=== PATIENT | male | born 1965 | race Caucasian/White ===

== ENCOUNTER 2018-06-12 13:57 | Emergency (ER) | payer BC ==
--- OUTSIDE RECORDS SUMMARY | 2018-06-12 14:04 | XMS REPORT ---
:1965 External Reference #:[id number] Author Organization [employer] Address [address] [place] [address] Phone [phone] Care Team Providers Name Role Phone Tru Burgos M.D. Primary Care Physician Unavailable Payers Type Date Identification Numbers Payment Provider Subscriber Commercial Policy Number: [id number] [place] Plan Blu Orozco PayID: [id number] [address] [place] [address] Problems Date Description Provider Status Onset: Multiple environmental allergies Active Onset: Hypercholesterolemia Active Onset: H/O: depression Active Onset: Carcinoma of prostate Active Onset: 05/11/2017 Presbyopia Trey Anthony M.D. Active Onset: 05/11/2017 Myopia Trey Anthony M.D. Active Onset: 05/11/2017 Esotropia Trey Anthony M.D. Active Onset: 05/11/2017 Nuclear senile cataract Trey Anthony M.D. Active Onset: 05/11/2017 Congenital cataract Trey Anthony M.D. 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 ETOH Use Occasionally consumes alcohol Smoking Patient has never smoked Recreational Drug Use Denies Drug Use Daily Caffeine Consumes on average 2 cups of regular coffee per day Allergies, Adverse Reactions, Alerts Date Description Reaction Status Severity Comments 05/10/2017 NKDA active Medications Medication Date Status Form Strength Qnty SIG Indications Ordering Provider Simvastatin 00// Active Tablets 40mg Take One Unknown 0000 Tablet By Mouth AT Bedtime Sildenafil Citrate 00/ Active Tablets 20mg Take 1 Unknown 0000 Tablet By Mouth Daily Pantoprazole / Active Tablets 20mg [place], Sodium 0000 DR Tru Turcios Levocetirizine / Active Tablets 5mg Unknown Dihydrochloride 0000 Cialis / Hx Tablets 5mg Unknown 0000 - 2017 Citalopram / Hx Tablets 20mg Take One Unknown Hydrobromide 0000 - Tablet By 2018 Every Day Results Description No Information Procedures Date CPT Code Description Status 05/11/2017 88480 Determination Of Refractive State Completed 05/11/2017 69340 Est Patient Comprehensive Exam Completed 10/21/2014 53952 Est Patient Comprehensive Exam Completed 09/18/2013 13488 Determination Of Refractive State Completed 09/18/2013 52948 Est Patient Comprehensive Exam Completed 09/18/2012 37426 Est Patient Comprehensive Exam Completed 09/15/2011 40843 Determination Of Refractive State Completed 09/15/2011 33304 Est Patient Comprehensive Exam Completed 09/15/2010 07375 Determination Of Refractive State Completed 09/15/2010 36219 New Patient Comprehensive Exam Completed 09/05/2007 99536 Determination Of Refractive State Completed 09/05/2007 87130 New Patient Comprehensive Exam Completed Plan of Care 05/17/2018 - Trey Anthony M.D.Q12.0 Congenital cataractComments:Smoking can increase the risk of developing or worsening any eye related disease, as well as affect your overall health. If you are a smoker, we strongly recommend that you quit.If you are not a smoker, we strongly recommend that you do not start.Follow up:1 Year Follow Up DFE You can expect to have your eyes dilated at your next visit. If Dr. Anthony orders any additional testing, it may require extra time. We recommend that you bring sunglasses, as dilation drops often make you light sensitive until they wear off. We always recommend you bring someone to drive you home if you are uncomfortable driving with your eyes dilated. If you have any questions before your next visit, feel free to call our office at .X15.12 Age-related nuclear cataract, left eyeComments:You have been diagnosed with a cataract in your left eye. If you are happy with your vision as it isnow, then we will see you at your next scheduled appointment. If you feel like your vision is getting worse before your scheduled appointment, please call Kathy Guzman at [phone].
[2018-06-12 14:11] VITALS: BP 140/83
--- NOTE | 2018-06-12 14:51 | ED ---
Abdominal Pain/Male - History of Current Complaint Chief Complaint: UCRespiratory Stated Complaint: FLU LIKE SYMPTOMS Time Seen by Provider: 06/12/18 14:46 Pain Intensity: 4 - Allergies/Home Medications Allergies/Adverse Reactions: Allergies Allergy/AdvReac Type Severity Reaction Status Date / Time No Known Allergies Allergy Verified 06/12/18 14:11 Home Medications: Home Medications Pantoprazole TAB (NF) [Protonix TAB (NF)] 20 mg PO DAILY 06/12/18 [History Confirmed 06/12/18] Sildenafil (NF) [Viagra (NF)] 25 mg PO 06/12/18 [History] Simvastatin TAB(NF) [Zocor(NF)] 40 mg PO 1700 06/12/18 [History Confirmed ] PMH/Surg Hx/FS Hx/Imm Hx - Cancer History Cancer Type, Location and Year: prostate - Surgical History Surgery Procedure, Year, and Place: prostatectomy Infectious Disease History: No Infectious Disease History: Reports: Traveled Outside the in Last 30 Days - [place] - Social History Alcohol Use: Weekly Substance Use Type: Reports: None Smoking Status (MU): Never Smoked Tobacco Physical Exam Vital Signs On Initial Exam: Initial Vitals Temp Pulse Resp BP Pulse Ox 100.7 F 95 18 140/83 95 06/12/18 14:03 06/12/18 14:03 06/12/18 14:03 06/12/18 14:03 06/12/18 14:03 Diagnostics - Vital Signs Vital Signs Temp Pulse Resp BP Pulse Ox 06/12/18 14:03 100.7 F 95 18 140/83 95 - Laboratory Lab Statement: Any lab studies that have been ordered have been reviewed, and results considered in the medical decision making process. Discharge - Discharge Plan Referrals: Tru Burgos MD [Primary Care Provider] -
--- NOTE | 2018-06-12 14:53 | UC ---
Respiratory Complaint HPI - HPI Summary HPI Summary: The pt is a 53 y/o male presenting to c/o flu-like symptoms worsened yesterday. He had just returned from a trip to [place] after which the illness started. He notes chills, subjective fever, sore throat, difficulty swallowing, myalgia, R ear pain, sinus congestion , clear nasal discharge , acid reflux and skin sensitivity. He denies chest congestion. He has NKDA. This is scribe Malgorzata Brown documenting for attending Dr. Dugan. I, Dr. Dugan , personally performed the services described in this documentation as scribed in my presence and it is both accurate and complete. - History of Current Complaint Chief Complaint: UCRespiratory Stated Complaint: FLU LIKE SYMPTOMS Time Seen by Provider: 06/12/18 14:46 Hx Obtained From: Patient Onset/Duration: Sudden Onset, Still Present Severity Initially: Moderate Severity Currently: Moderate Pain Intensity: 4 Pain Scale Used: 0-10 Numeric Associated Signs And Symptoms: Positive: Negative - Chest congestion, Fever, Chills, Nasal Congestion - Allergies/Home Medications Allergies/Adverse Reactions: Allergies Allergy/AdvReac Type Severity Reaction Status Date / Time No Known Allergies Allergy Verified 06/12/18 14:11 Home Medications: Home Medications Pantoprazole TAB (NF) [Protonix TAB (NF)] 20 mg PO DAILY 06/12/18 [History Confirmed 06/12/18] Sildenafil (NF) [Viagra (NF)] 25 mg PO 06/12/18 [History] Simvastatin TAB(NF) [Zocor(NF)] 40 mg PO 1700 06/12/18 [History Confirmed ] PMH/Surg Hx/FS Hx/Imm Hx Previously Healthy: No - PMHX of HLD and esophageal spasms; Denies a hx of DM and GERD Endocrine History: Dyslipidemia - Surgical History Surgical History: Yes Surgery Procedure, Year, and Place: prostatectomy - Family History Known Family History: Positive: Hypertension, Other - Parkinsons disease - Social History Occupation: Employed Full-time Lives: With Family Alcohol Use: Weekly Substance Use Type: None Smoking Status (MU): Never Smoked Tobacco Review of Systems Constitutional: Fever - Subjective, Chills Skin: Other - Positive; Skin sensitivity ENT: Sore Throat, Ear Ache - R ear, Nasal Discharge - Clear, Sinus Congestion, Other - Positive: Difficulty swallowing Respiratory: Negative - Chest congestion Gastrointestinal: Other - Positive; Acid reflux Musculoskeletal: Myalgia All Other Systems Reviewed And Are Negative: Yes Physical Exam - Summary Physical Exam Summary: General: well-appearing, no pain distress Skin: warm, color reflects adequate perfusion, dry Head: normal Eyes: EOMI, ROSA ELENA ENT: Partial cerumen impaction in R ear canal; No tenderness to palpation of the tragus ; No pain to traction in the pinnae; A portion of eardrum is erythematous; Posterior pharynx is erythematous Neck: supple, nontender Respiratory: CTA, breath sounds present; lung are clear Cardiovascular: RRR Abdomen: soft, nontender Bowel: present Musculoskeletal: normal, strength/ROM intact Neurological: sensory/motor intact, A&O x3 Psychological: affect/mood appropriate Triage Information Reviewed: Yes Vital Signs: Initial Vital Signs Temp 100.7 F 06/12/18 14:03 Pulse 95 06/12/18 14:03 Resp 18 06/12/18 14:03 BP 140/83 06/12/18 14:03 Pulse Ox 95 06/12/18 14:03 Vital Signs Reviewed: Yes Diagnostic Evaluation - Laboratory O2 Sat by Pulse Oximetry: 95 Respiratory Course/Dx - Course Course Of Treatment: DENIES CHEST PAIN. DESCRIBES REFLUX BURNING, WORSE WITH LAYING DOWN. F/U PMD; RECHECK SOONER IF WORSE. - Differential Dx/Diagnosis Provider Diagnoses: OTITIS MEDIA, RIGHT. FEVER. GERD Discharge - Sign-Out/Discharge Documenting (check all that apply): Patient Departure - Discharge Plan Condition: Stable Disposition: HOME Prescriptions: Amoxicillin/Clavulanate TAB* [Augmentin TAB 875*] 875 mg PO BID #20 tab Omeprazole CAP* [Prilosec CAP* 20 MG] 20 mg PO BID #30 cap. Patient Education Materials: Fever in Adults (ED), Ear Infection (ED), Gastroesophageal Reflux Disease (ED) Referrals: Tru Burgos MD [Primary Care Provider] - Additional Instructions: FOLLOW UP WITH YOUR DOCTOR IF NOT COMPLETELY IMPROVED. GET RECHECKED FOR ANY WORSENING OF YOUR CONDITION OR QUESTIONS OR CONCERNS. - Billing Disposition and Condition Condition: STABLE Disposition: Home
== END 2018-06-12 15:35 | disposition home or self-care (01) ==
LOC: UCEAST 13:57
DX: H66.91 Otitis media, unspecified, right ear (principal); R50.9 Fever, unspecified; K21.9 Gastro-esophageal reflux disease without esophagitis; E78.5 Hyperlipidemia, unspecified
CPT/HCPCS: 99201; G0463

== ENCOUNTER 2019-08-25 20:55 | Emergency (ER) | payer BC ==
[2019-08-25 21:06] VITALS: BP 137/87
[2019-08-25] MEDS ORDERED: DOXYcycline CAP(*) 100 MG PO ONE (21:27)
--- NOTE | 2019-08-25 21:31 | UC ---
Skin Complaint HPI - HPI Summary HPI Summary: Tick bite left upper arm removed at home on > 24 hours but not sure slightly engorged - History of Current Complaint Chief Complaint: UCSkin Time Seen by Provider: 08/25/19 21:09 Stated Complaint: TICK Hx Obtained From: Patient Current Severity: Mild Pain Intensity: 2 Pain Scale Used: 0-10 Numeric Location: Discrete Character: Pain, Redness Aggravating Factor(s): Nothing Alleviating Factor(s): Nothing Associated Signs & Symptoms: Positive: Negative Related History: Insect Bite/Sting - Allergy/Home Medications Allergies/Adverse Reactions: Allergies Allergy/AdvReac Type Severity Reaction Status Date / Time No Known Allergies Allergy Verified 08/25/19 21:06 Home Medications: Home Medications Ibuprofen 400 mg PO ONCE PRN 08/25/19 [History Confirmed 08/25/19] LevoCETirizine TAB (NF) [Xyzal TAB (NF)] 1 tab PO DAILY PRN 08/25/19 [History Confirmed 08/25/19] PMH/Surg Hx/FS Hx/Imm Hx Endocrine History: Dyslipidemia - Surgical History Surgical History: Yes Surgery Procedure, Year, and Place: prostatectomy - Family History Known Family History: Positive: Hypertension, Other - Parkinsons disease - Social History Alcohol Use: Occasionally Substance Use Type: None Smoking Status (MU): Never Smoked Tobacco Review of Systems All Other Systems Reviewed And Are Negative: Yes Constitutional: Positive: Negative Skin: Positive: Negative Eyes: Positive: Negative ENT: Positive: Negative Respiratory: Positive: Negative Cardiovascular: Positive: Negative Gastrointestinal: Positive: Negative Genitourinary: Positive: Negative Motor: Positive: Negative Neurovascular: Positive: Negative Musculoskeletal: Positive: Negative Neurological: Positive: Negative Psychological: Positive: Negative Physical Exam Triage Information Reviewed: Yes Appearance: Well-Appearing, No Pain Distress, Well-Nourished Vital Signs: Initial Vital Signs Temp 98.8 F 08/25/19 21:01 Pulse 68 08/25/19 21:01 Resp 18 08/25/19 21:01 BP 137/87 08/25/19 21:01 Pulse Ox 95 08/25/19 21:01 Vital Signs Reviewed: Yes Eyes: Positive: Conjunctiva Clear, Other: - lazy eye ENT: Positive: Hearing grossly normal, Uvula midline. Negative: Nasal congestion, Nasal drainage, Trismus, Muffled voice, Hoarse voice Dental Exam: Normal Neck: Positive: Supple, Nontender, No Lymphadenopathy Respiratory: Positive: Lungs clear, Normal breath sounds, No respiratory distress Cardiovascular: Positive: RRR, No Murmur Abdomen Description: Positive: Nontender, No Organomegaly Musculoskeletal: Positive: ROM Intact, No Edema Neurological: Positive: Alert Psychological Exam: Normal Skin Exam: Other - retained tick manible left arm Course/Dx - Diagnoses Provider Diagnosis: Tick bite, Risk of exposure to Lyme disease, Elevated BP without diagnosis of hypertension Discharge ED - Sign-Out/Discharge Documenting (check all that apply): Patient Departure All imaging exams completed and their final reports reviewed: No Studies - Discharge Plan Condition: Stable Disposition: HOME Patient Education Materials: Tick Bite (ED) Referrals: Tru Burgos MD [Primary Care Provider] - 2 Weeks (BP recheck in 2-12 weeks) Additional Instructions: take both doxy tonight with food - Billing Disposition and Condition Condition: STABLE Disposition: Home
== END 2019-08-25 21:41 | disposition home or self-care (01) ==
LOC: UCEAST 20:55
DX: S40.862A Insect bite (nonvenomous) of left upper arm, initial encounter (principal); Z20.818 Contact with and (suspected) exposure to other bacterial communicable diseases; R03.0 Elevated blood-pressure reading, without diagnosis of hypertension; W57.XXXA Bitten or stung by nonvenomous insect and other nonvenomous arthropods, initial encounter; Y92.9 Unspecified place or not applicable
CPT/HCPCS: 99212; A9270-GY; G0463